=== PATIENT | female | born 1985 | race Two or more races ===

== ENCOUNTER 2018-10-18 18:22 | Emergency (ER) | payer MEDICAID, OTHER ==
[~2018-10-18] VITALS: Ht 157.5 cm; Wt 76.2 kg
[2018-10-18 18:57] VITALS: BP 101/65
== END 2018-10-19 00:29 | disposition home or self-care (01) ==
LOC: ER 18:22
DX: R09.81 Nasal congestion (principal); R22.0 Localized swelling, mass and lump, head; R20.0 Anesthesia of skin

== ENCOUNTER 2019-01-21 07:49 | Emergency (ER) | payer MEDICAID ==
[~2019-01-21] VITALS: Ht 154.9 cm; Wt 77.1 kg
[2019-01-21 07:58] VITALS: BP 121/71
[2019-01-21] MEDS ORDERED: diphenhdrAMINE HCL 25 MG CAP PO ONE (08:45)
[2019-01-21] MEDS ORDERED: KETOROLAC TROMETH 60MG/2ML VIAL IM ONE (08:45)
[2019-01-21] MEDS ORDERED: PROMETHAZINE HCL 25 MG/ML 1ML IM ONE (08:45)
== END 2019-01-21 09:12 | disposition home or self-care (01) ==
LOC: ER 07:49 → EDBD 07:49 → ER 09:12
DX: S46.912A Strain of unspecified muscle, fascia and tendon at shoulder and upper arm level, left arm, initial encounter (principal); R51 Headache; X50.9XXA Other and unspecified overexertion or strenuous movements or postures, initial encounter; Y93.89 Activity, other specified; Y99.8 Other external cause status; Y92.89 Other specified places as the place of occurrence of the external cause
CPT/HCPCS: 70450; 96372; 99284; J1885; J2550

== ENCOUNTER 2019-09-17 17:47 | Emergency (ER) | payer MEDICAID ==
[~2019-09-17] VITALS: Ht 157.5 cm; Wt 81.6 kg
[2019-09-17 18:26] VITALS: BP 107/54
== END 2019-09-17 21:57 | disposition home or self-care (01) ==
LOC: ER 17:47
DX: H10.33 Unspecified acute conjunctivitis, bilateral (principal)

== ENCOUNTER 2020-02-14 17:58 | Emergency (ER) | payer MEDICAID ==
[2020-02-14 18:48] VITALS: BP 115/80
== END 2020-02-14 20:41 | disposition home or self-care (01) ==
LOC: ER 17:58
DX: S61.214A Laceration without foreign body of right ring finger without damage to nail, initial encounter (principal); W26.9XXA Contact with unspecified sharp object(s), initial encounter; Y93.89 Activity, other specified; Y92.89 Other specified places as the place of occurrence of the external cause; Y99.8 Other external cause status
CPT/HCPCS: 12001; 73130

== ENCOUNTER 2020-05-23 18:27 | Emergency (ER) | payer MEDICAID ==
[~2020-05-23] VITALS: Ht 157.5 cm; Wt 77.1 kg
[2020-05-23 18:40] VITALS: BP 109/85
== END 2020-05-23 20:50 | disposition home or self-care (01) ==
LOC: ER 18:27
DX: R50.9 Fever, unspecified (principal); R07.89 Other chest pain; R51 Headache; R42 Dizziness and giddiness; Z20.828 Contact with and (suspected) exposure to other viral communicable diseases
CPT/HCPCS: 36415; 71045; 87426; 99284; C9803; U0003

== ENCOUNTER 2021-08-22 22:24 | Emergency (ER) | payer MEDICAID, OTHER ==
[~2021-08-22] VITALS: Ht 157.5 cm; Wt 80.7 kg
[2021-08-22 22:36] VITALS: BP 115/67
[2021-08-22 23:30] LABS: Basophils # (auto) 0.1 10 ^3/uL (0-0.2); Basophils % (auto) 0.8 % (0.0-2.0); Eosinophils # (auto) 0.1 10 ^3/uL (0-0.8); Eosinophils % (auto) 1.4 % (0.0-7.0); Hematocrit 39.1 % (36.0-46.0); Hemoglobin 12.9 g/dL (12.2-16.2); Lymphocytes # (auto) 2.9 10 ^3/uL (0.4-5.4); Lymphocytes % (auto) 35.9 % (10.0-50.0); Mean Corpuscular Hemoglobin 27.7 pg (28.0-32.0); Mean Corpuscular Volume 83.9 fL (80.0-100.0); Monocytes # (auto) 0.4 10 ^3/uL (0-1.3); Monocytes % (auto) 5.5 % (0.0-12.0); Neutrophils # (auto) 4.5 10 ^3/uL (1.6-8.6); Neutrophils % (auto) 56.4 % (37.0-80.0); Nucleated Red Blood Cells % 0.1 %; Red Blood Cells 4.66 10^6/uL (4.0-5.20); Red Cell Distribution Width 13.4 % (11.8-14.3)
[2021-08-22 23:49] LABS: Albumin 3.6 g/dL (3.4-5.0); Calcium 8.5 mg/dL (8.5-10.1); Magnesium 2.7 mg/dL (1.6-2.6); Potassium 3.7 mmol/L (3.5-5.1)
[2021-08-22 23:55] LABS: BUN/Creatinine Ratio 21.2; Bilirubin, Total 0.5 mg/dL (0.2-1.0)
== END 2021-08-23 02:54 | disposition left against medical advice (07) ==
LOC: ER 22:26
DX: R07.89 Other chest pain (principal); Z53.21 Procedure and treatment not carried out due to patient leaving prior to being seen by health care provider
CPT/HCPCS: 36415; 71045; 80053; 83735; 84484; 85025; 93005